=== PATIENT | male | born 1965 | race Caucasian/White ===

== ENCOUNTER 2019-06-05 10:44 | Outpatient (CLI) | payer OTHER ==
--- NOTE | 2019-06-05 12:48 | RAD ---
RADIOGRAPH CERVICAL SPINE 5 VIEWS: DATE: 06/05/2019 HISTORY: 54-year-old male with cervicalgia TECHNIQUE: 3 lateral views in flexion, extension, and neutral. AP view. Open-mouth view. FINDINGS: No high-grade DJD of atlantoaxial joints. Vertebral body heights are maintained. Moderate disc space narrowing at C4-5 and C5-6, with slight degenerative retrolisthesis, and posterior endplate osteophytes encroaching upon anterior aspect of spinal canal. Limited range of motion in flexion deisy uver, and limited range of motion in extension maneuver. No obvious major instability. The rest of the disc spaces are maintained. IMPRESSION: Cervical spondylosis, with moderate degenerative disc disease at C4-5 and C5-6.
--- NOTE | 2019-06-05 13:13 | MRI ---
MRI CERVICAL SPINE WITHOUT CONTRAST: HISTORY: Neck pain. COMPARISON: None. FINDINGS: Appropriate T1 marrow signal intensity of the cervical vertebrae Cervical spine vertebral body heigh t is maintained. No fracture. No significant STIR hyperintensity to suggest vertebral body edema or ligamentous injury. Spondylolisthesis: C4-C5: There is 1.2 mm of retrolisthesis. C5-C6: There is 1.2 mm of retrolisthesis. The visualized brain parenchyma, cervicomedullary junction, cervical cord and the upper thoracic cord have a normal size and signal intensity. C2-C3: No significant canal stenosis or significant neural foraminal. C3-C4: Minimal central disc protrusion. No significant canal stenosis or significant neural foraminal narrowing. C4-C5: Broad-based discussed by complex with a central/left paracentral component. There is deformity of the left hemicord with mild to moderate central canal stenosis. Mild bilateral neural foraminal narrowing due to uncovertebral hypertrophy. C5-C6: Broad-based discussed by complex abuts the thecal sac. Mild central canal stenosis. Mild bilat eral foraminal narrowing due to uncovertebral hypertrophy. C6-C7: Broad-based discussed by complex of a left paracentral component. Mild central canal stenosis. Right neural foramen is patent. Mild left foraminal narrowing due to uncovertebral hypertrophy. C7-T1: No significant canal stenosis or foraminal narrowing. IMPRESSION: Degenerative changes of the cervical spine as above. Transcribed Date/Time: 06/05/2019 1:18 PM
== END 2019-06-05 10:45 | disposition home or self-care (01) ==
LOC: TBSIIMAG 10:44
PROVIDERS: ATTEND Physician Assistant Surgical
DX: M54.2 Cervicalgia (principal); M50.321 Other cervical disc degeneration at C4-C5 level; M47.812 Spondylosis without myelopathy or radiculopathy, cervical region
CPT/HCPCS: 72050; 72141

== ENCOUNTER 2019-07-13 09:36 | Outpatient (CLI) | payer OTHER ==
--- NOTE | 2019-07-13 10:01 | RAD ---
Exam: 4 views lumbar spine HISTORY: Low back pain. Bilateral leg weakness. FINDINGS: 5 lumbar type vertebra. Lumbar spine vertebral body height is maintained. There is no fract ure. Mild to moderate loss of disc space height at L3-L4. Moderate loss of disc space at L4-L5. Spondylolisthesis: L3-L4: Neutral 1.9 mm, flexion 3.3 mm, extension 1.5 mm Mild hypertrophic changes of the lumbosacral junction. IMPRESSION: Grade 1 anterolisthesis of L3 upon L4.
--- NOTE | 2019-07-13 10:59 | MRI ---
MRI LUMBAR SPINE NONCONTRAST: DATE: 07/13/2019 HISTORY: 54-year-old male with low back pain and bilateral lower extremity radiculopathy and weakness. COMPARISON: none FINDINGS: Plain radiographic study from today demonstrates 5 lumbar-type vertebrae. Vertebral body heights are maintained. Bone marrow signal is normal. No major spondylolisthesis. T12-L1:Normal. Conus medullaris terminates at this level. L1-2:Normal. L2-3:Minimal retrolisthesis of L2 on L3. Otherwise normal. L3-4:Moderate disc space narrowing. Retrolisthesis of L3 on L4 plus mild diffuse disc bulge encroache s upon spinal canal and neural foramina. Mild to moderate central spinal canal stenosis. Moderate thecal sac stenosis. Posterior epidural small fat pad. Mild bilateral neural foraminal stenosis. Supe rimposed small central disc herniation with slight inferior migration of extruded disc material almost to the pedicle level of L4. Mild bilateral facet DJD. Left facet joint small effusion. L4-5:Hypoplastic disc space. Absence of right L5 pedicle, such that the neural foramen of right L4-5 widely communicates with that of right L5-S1. No significant right neural foraminal stenosis. Mild left neural foraminal stenosis. Hypoplastic bilateral facet joints. No high-grade central spinal wai l stenosis. L5: In the anterior epidural space, there is a 1 x 2 x 2.5 cm structure which is very T1 hypointense, moderately hyperintense on STIR sequence (this is not fat) and of intermediate signal intensity on turbospin echo T2 sequence. Mildly indents the ventral aspect of thecal sac.. No high-grade central s gregory canal stenosis. Mild the thecal sac stenosis. Conjoined nerve root. L5-S1:Mild disc space narrowing. Diffuse disc bulge. The bilateral far lateral components of the disc bulge abut the exiting bilateral L5 nerve roots. No right neural foraminal stenosis. Moderate left neural foraminal stenosis. No high-grade central spinal canal stenosis. Small disc herniation at midl ine and left and right paracentral aspects. Perhaps this small herniated disc material is the source of the anterior epidural material posterior to the L5 vertebral body mentioned above. 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 2) degenerative disc disease at L3-4 and L5-S1. 3) central and bilateral paracentral disc herniation at L5-S1, with far superior migration of the ext ruded disc material as far superiorly as the next disc space level, L4-5. 4) no severe central spinal canal stenosis at any level. 5) moderate left neural foraminal stenosis at L5-S1.
== END 2019-07-13 09:37 | disposition home or self-care (01) ==
LOC: TBSIIMAG 09:36
PROVIDERS: ATTEND Surgery
DX: M54.5 Low back pain (principal); M43.16 Spondylolisthesis, lumbar region; M51.36 Other intervertebral disc degeneration, lumbar region; M51.37 Other intervertebral disc degeneration, lumbosacral region; M51.27 Other intervertebral disc displacement, lumbosacral region; M48.07 Spinal stenosis, lumbosacral region; Q76.49 Other congenital malformations of spine, not associated with scoliosis; Z98.1 Arthrodesis status
CPT/HCPCS: 72120; 72148